=== PATIENT | female | born 1980 | race Two or more races ===

== ENCOUNTER → 2021-05-06 06:17 | Outpatient (CLI) | payer OTHER ==
[~2021-05-06 06:17] MED LIST: AVONEX ADM30 MCG/KIT IM; BACTRIM DS TAB1 EACH PO; PROZAC20 MG PO; TECFIDERA240 MG
== END | disposition home or self-care (01) ==
LOC: LAB 06:17
PROVIDERS: ATTEND Obstetrics & Gynecology
DX: I10 Essential (primary) hypertension (principal); E03.8 Other specified hypothyroidism; Z12.11 Encounter for screening for malignant neoplasm of colon; N30.00 Acute cystitis without hematuria; E83.51 Hypocalcemia; N95.8 Other specified menopausal and perimenopausal disorders

== ENCOUNTER 2021-05-23 14:16 | Outpatient (CLI) | payer OTHER ==
[~2021-05-23 14:16] MED LIST changes: -BACTRIM DS TAB1 EACH PO
[2021-06-25] MEDS ORDERED: BACTRIM DS TAB1 EACH PO (16:08)
== END 2021-05-23 14:29 | disposition home or self-care (01) ==
LOC: MAMO-SONO 14:16
PROVIDERS: ATTEND Obstetrics & Gynecology
DX: N60.11 Diffuse cystic mastopathy of right breast (principal); N60.12 Diffuse cystic mastopathy of left breast; Z12.31 Encounter for screening mammogram for malignant neoplasm of breast

== ENCOUNTER → 2021-06-25 | Emergency (ER) | payer OTHER ==
[~2021-06-25] VITALS: Ht 162.6 cm; Wt 59.0 kg
[~2021-06-25] MED LIST changes: +BACTRIM DS TAB1 EACH PO
== END | disposition home or self-care (01) ==
LOC: ER 14:42
DX: N39.0 Urinary tract infection, site not specified (principal)

== ENCOUNTER → 2021-08-08 06:09 | Outpatient (CLI) | payer OTHER | END | disposition home or self-care (01) | LOC: LAB 06:09 | PROVIDERS: ATTEND Psychiatry & Neurology Neurology | DX: G35 Multiple sclerosis (principal); Z13.29 Encounter for screening for other suspected endocrine disorder; E55.9 Vitamin D deficiency, unspecified; N30.00 Acute cystitis without hematuria ==

== ENCOUNTER 2021-08-28 06:30 | Emergency (ER) | payer OTHER ==
[~2021-08-28] VITALS: Ht 162.6 cm; Wt 56.7 kg
[2021-08-28] MEDS ORDERED: PROZAC20 MG (06:52)
[2021-08-28] MEDS ORDERED: PEPCID AC20 MG PO (13:20)
[2021-08-28] MEDS ORDERED: PANTOPRAZOLE SO20 MG PO (13:20)
== END 2021-08-28 13:52 | disposition home or self-care (01) ==
LOC: ER 06:30
DX: R10.13 Epigastric pain (principal); R10.11 Right upper quadrant pain

== ENCOUNTER → 2021-09-13 06:08 | Outpatient (CLI) | payer OTHER ==
[~2021-09-13 06:08] MED LIST changes: +PANTOPRAZOLE SO20 MG PO; +PEPCID AC20 MG PO; +PROZAC20 MG
== END | disposition home or self-care (01) ==
LOC: LAB 06:08
PROVIDERS: ATTEND Psychiatry & Neurology Neurology
DX: G35 Multiple sclerosis (principal); Z11.4 Encounter for screening for human immunodeficiency virus [HIV]; Z11.3 Encounter for screening for infections with a predominantly sexual mode of transmission; N30.00 Acute cystitis without hematuria; Z20.828 Contact with and (suspected) exposure to other viral communicable diseases; Z11.59 Encounter for screening for other viral diseases; Z13.29 Encounter for screening for other suspected endocrine disorder

== ENCOUNTER 2021-09-30 08:00 | Outpatient (CLI) | payer OTHER | END 2021-09-30 08:30 | disposition home or self-care (01) | LOC: PPH VACUNA 08:00 | PROVIDERS: ATTEND Emergency Medicine Pediatric Emergency Medicine | DX: Z23 Encounter for immunization (principal) ==

== ENCOUNTER 2021-11-05 06:42 | Outpatient (CLI) | payer OTHER | END 2021-11-05 06:43 | disposition home or self-care (01) | LOC: LAB 06:42 | PROVIDERS: ATTEND Psychiatry & Neurology Neurology | DX: N30.00 Acute cystitis without hematuria (principal); Z13.29 Encounter for screening for other suspected endocrine disorder ==

== ENCOUNTER → 2021-11-26 | Outpatient (CLI) | payer OTHER | END | disposition home or self-care (01) | LOC: PPH VACUNA 08:00 | PROVIDERS: ATTEND Emergency Medicine Pediatric Emergency Medicine | DX: Z23 Encounter for immunization (principal) ==

== ENCOUNTER 2022-01-15 06:17 | Outpatient (CLI) | payer OTHER | END 2022-01-15 06:18 | disposition home or self-care (01) | LOC: LAB 06:17 | PROVIDERS: ATTEND Internal Medicine | DX: E05.90 Thyrotoxicosis, unspecified without thyrotoxic crisis or storm (principal); I10 Essential (primary) hypertension ==

== ENCOUNTER 2022-01-24 12:58 | Outpatient (CLI) | payer OTHER | END 2022-01-24 13:08 | disposition home or self-care (01) | LOC: SONOGRAMA 12:58 | PROVIDERS: ATTEND Internal Medicine | DX: E04.2 Nontoxic multinodular goiter (principal) ==

== ENCOUNTER 2022-02-24 06:13 | Outpatient (CLI) | payer OTHER | END 2022-02-24 06:14 | disposition home or self-care (01) | LOC: LAB 06:13 | PROVIDERS: ATTEND Internal Medicine | DX: E05.90 Thyrotoxicosis, unspecified without thyrotoxic crisis or storm (principal); E11.65 Type 2 diabetes mellitus with hyperglycemia; I10 Essential (primary) hypertension ==

== ENCOUNTER 2022-04-01 06:10 | Outpatient (CLI) | payer OTHER | END 2022-04-01 06:11 | disposition home or self-care (01) | LOC: LAB 06:10 | PROVIDERS: ATTEND Internal Medicine | DX: E05.90 Thyrotoxicosis, unspecified without thyrotoxic crisis or storm (principal); I10 Essential (primary) hypertension ==

== ENCOUNTER 2022-05-23 06:13 | Outpatient (CLI) | payer OTHER | END 2022-05-23 06:14 | disposition home or self-care (01) | LOC: LAB 06:13 | PROVIDERS: ATTEND Internal Medicine | DX: I10 Essential (primary) hypertension (principal); E05.90 Thyrotoxicosis, unspecified without thyrotoxic crisis or storm ==

== ENCOUNTER 2022-06-10 06:48 | Outpatient (CLI) | payer OTHER | END 2022-06-10 06:57 | disposition home or self-care (01) | LOC: LAB 06:48 | PROVIDERS: ATTEND Internal Medicine | DX: E11.65 Type 2 diabetes mellitus with hyperglycemia (principal) ==

== ENCOUNTER → 2022-06-11 06:15 | Outpatient (CLI) | payer OTHER | END | disposition home or self-care (01) | LOC: LAB 06:15 | PROVIDERS: ATTEND Psychiatry & Neurology Neurology | DX: G35 Multiple sclerosis (principal); N30.00 Acute cystitis without hematuria ==

== ENCOUNTER 2022-06-30 06:36 | Outpatient (CLI) | payer OTHER | END 2022-06-30 06:37 | disposition home or self-care (01) | LOC: LAB 06:36 | PROVIDERS: ATTEND Psychiatry & Neurology Neurology | DX: G35 Multiple sclerosis (principal); E55.9 Vitamin D deficiency, unspecified ==

== ENCOUNTER 2022-08-01 06:46 | Outpatient (CLI) | payer OTHER | END 2022-08-01 06:47 | disposition home or self-care (01) | LOC: LAB 06:46 | PROVIDERS: ATTEND Internal Medicine | DX: E11.65 Type 2 diabetes mellitus with hyperglycemia (principal); E05.90 Thyrotoxicosis, unspecified without thyrotoxic crisis or storm; E03.9 Hypothyroidism, unspecified ==

== ENCOUNTER 2022-08-21 14:16 | Outpatient (CLI) | payer OTHER | END 2022-08-21 14:19 | disposition home or self-care (01) | LOC: SONOGRAMA 14:16 | PROVIDERS: ATTEND Internal Medicine | DX: E04.2 Nontoxic multinodular goiter (principal) ==

== ENCOUNTER → 2022-08-25 06:12 | Outpatient (CLI) | payer OTHER | END | disposition home or self-care (01) | LOC: LAB 06:12 | PROVIDERS: ATTEND Internal Medicine | DX: E05.90 Thyrotoxicosis, unspecified without thyrotoxic crisis or storm (principal); I10 Essential (primary) hypertension ==

== ENCOUNTER 2022-10-24 06:42 | Outpatient (CLI) | payer OTHER | END 2022-10-24 06:45 | disposition home or self-care (01) | LOC: LAB 06:42 | PROVIDERS: ATTEND Internal Medicine | DX: E78.5 Hyperlipidemia, unspecified (principal); I10 Essential (primary) hypertension; E55.9 Vitamin D deficiency, unspecified; E03.8 Other specified hypothyroidism ==

== ENCOUNTER 2022-10-29 12:53 | Outpatient (CLI) | payer OTHER | END 2022-10-29 12:56 | disposition home or self-care (01) | LOC: TOM 12:53 | DX: H57.9 Unspecified disorder of eye and adnexa (principal) ==

== ENCOUNTER 2022-11-27 09:41 | Outpatient (CLI) | payer OTHER | END 2022-11-27 09:46 | disposition home or self-care (01) | LOC: LAB 09:41 | PROVIDERS: ATTEND Internal Medicine | DX: E11.65 Type 2 diabetes mellitus with hyperglycemia (principal); E03.9 Hypothyroidism, unspecified; I10 Essential (primary) hypertension; E05.90 Thyrotoxicosis, unspecified without thyrotoxic crisis or storm ==

== ENCOUNTER → 2022-12-31 08:57 | Outpatient (CLI) | payer OTHER | END | disposition home or self-care (01) | LOC: LAB 08:57 | PROVIDERS: ATTEND Internal Medicine | DX: E03.9 Hypothyroidism, unspecified (principal); E05.90 Thyrotoxicosis, unspecified without thyrotoxic crisis or storm ==

== ENCOUNTER 2023-02-17 13:58 | Outpatient (CLI) | payer OTHER | END 2023-02-17 14:06 | disposition home or self-care (01) | LOC: SONOGRAMA 13:58 | PROVIDERS: ATTEND Internal Medicine | DX: E04.2 Nontoxic multinodular goiter (principal) ==

== ENCOUNTER → 2023-02-18 07:56 | Outpatient (CLI) | payer OTHER | END | disposition home or self-care (01) | LOC: LAB 07:56 | PROVIDERS: ATTEND Internal Medicine | DX: E11.65 Type 2 diabetes mellitus with hyperglycemia (principal); E05.91 Thyrotoxicosis, unspecified with thyrotoxic crisis or storm; I10 Essential (primary) hypertension ==

== ENCOUNTER 2023-05-13 07:24 | Outpatient (CLI) | payer OTHER | END 2023-05-13 07:26 | disposition home or self-care (01) | LOC: LAB 07:24 | PROVIDERS: ATTEND Internal Medicine | DX: I10 Essential (primary) hypertension (principal); E05.90 Thyrotoxicosis, unspecified without thyrotoxic crisis or storm; E11.65 Type 2 diabetes mellitus with hyperglycemia ==

== ENCOUNTER 2023-06-17 14:36 | Outpatient (CLI) | payer OTHER | END 2023-06-17 14:46 | disposition home or self-care (01) | LOC: MAMO-SONO 14:36 | PROVIDERS: ATTEND Obstetrics & Gynecology | DX: Z12.31 Encounter for screening mammogram for malignant neoplasm of breast (principal); N60.11 Diffuse cystic mastopathy of right breast; N60.12 Diffuse cystic mastopathy of left breast ==

== ENCOUNTER 2023-06-23 13:16 | Outpatient (CLI) | payer OTHER | END 2023-06-23 13:34 | disposition home or self-care (01) | LOC: NUCLEAR 13:16 | PROVIDERS: ATTEND Obstetrics & Gynecology | DX: M81.0 Age-related osteoporosis without current pathological fracture (principal) ==

== ENCOUNTER 2023-08-03 16:07 | Outpatient (CLI) | payer OTHER | END 2023-08-03 16:11 | disposition home or self-care (01) | LOC: RAD 16:07 | DX: H50.00 Unspecified esotropia (principal) ==

== ENCOUNTER → 2023-08-04 07:50 | Outpatient (CLI) | payer OTHER | END | disposition home or self-care (01) | LOC: LAB 07:50 | DX: D64.9 Anemia, unspecified (principal); E78.00 Pure hypercholesterolemia, unspecified; E05.00 Thyrotoxicosis with diffuse goiter without thyrotoxic crisis or storm; Z20.822 Contact with and (suspected) exposure to COVID-19 ==

== ENCOUNTER → 2023-09-04 09:01 | Outpatient (CLI) | payer OTHER ==
[2023-09-04 09:32] LABS: URINE APPEARANCE Clear; URINE BILIRRUBIN Negative (NEGATIVE); URINE BLOOD Negative; URINE COLOR Yellow; URINE GLUCOSE Negative (NEGATIVE); URINE LEUKOCYTE Trace; URINE NITRATE Negative; URINE PROTEIN Negative (NEGATIVE); URINE UROBILINOGEN 0.2 E.U./dl
[2023-09-04 09:33] LABS: URINE BACTERIA 22.6 uL (0.0-1933); URINE EPITHELIAL CELLS 10.9 uL (0.0-38.8); URINE RBC 11.4 uL (0.0-20.8); URINE WBC 6.6 uL (0.0-23.2)
[2023-09-04 09:40] LABS: HEMATOCRIT 40.4 % (36.0-45.00); HEMOGLOBIN 14.2 g/dL (12.0-15.00); MEAN CELL VOLUME 91.8 fL (80.00-100.00); MEAN CORPUSCULAR HEMOGLOBIN 32.2 pg (27.00-32.0); PLATELET COUNT 227 K/uL (150-450); RED CELL DISTRIBUTION WIDTH 14.5 % (11.5-14.5)
[2023-09-04 10:51] LABS: ALBUMIN 3.6 gm/dL (3.4-5.0); BILIRUBIN TOTAL 1.91 mg/dL (0.3-1.2); CALCIUM 8.7 mg/dL (8.5-10.1); CHOL HDL RATIO 2.4 (0-5.0); CREATININE SERUM 0.69 mg/dL (0.55-1.02); GLOBULINA 3.2 G/DL (2.4-3.5); POTASSIUM 3.8 mEq/L (3.5-5.1); T4 TOTAL 7.06 UG/DL (4.8-13.9); TOTAL PROTEIN 6.8 gm/dL (6.4-8.2); TSH 2.88 uIU/mL (0.358-3.74)
== END | disposition home or self-care (01) ==
LOC: LAB 09:01
DX: E78.5 Hyperlipidemia, unspecified (principal); N39.0 Urinary tract infection, site not specified; E11.9 Type 2 diabetes mellitus without complications; D64.9 Anemia, unspecified; R19.5 Other fecal abnormalities; M06.9 Rheumatoid arthritis, unspecified

== ENCOUNTER 2023-12-03 08:04 | Outpatient (CLI) | payer OTHER ==
[2023-12-03 08:55] LABS: HEMOGLOBIN 14.5 g/dL (12.0-15.00); MEAN CELL VOLUME 92.3 fL (80.00-100.00); MEAN CORPUSCULAR HEMOGLOBIN 31.2 pg (27.00-32.0); MEAN CORPUSCULAR HGB CONC 33.8 g/dl (32.0-36.0); PLATELET COUNT 240 K/uL (150-450); RED BLOOD COUNT 4.66 M/uL (4.00-6.00); RED CELL DISTRIBUTION WIDTH 12.8 % (11.5-14.5)
[2023-12-03 09:30] LABS: ALBUMIN 3.8 gm/dL (3.4-5.0); BILIRUBIN TOTAL 1.66 mg/dL (0.3-1.2); CALCIUM 9.5 mg/dL (8.5-10.1); CREATININE SERUM 0.72 mg/dL (0.55-1.02); GFR 87.59; GLOBULINA 3.2 G/DL (2.4-3.5); POTASSIUM 4.27 mEq/L (3.5-5.1)
== END 2023-12-03 08:05 | disposition home or self-care (01) ==
LOC: LAB 08:04
DX: G35 Multiple sclerosis (principal)

== ENCOUNTER 2023-12-28 07:58 | Outpatient (CLI) | payer OTHER ==
[2023-12-28 09:28] LABS: HEMATOCRIT 43.5 % (36.0-45.00); HEMOGLOBIN 14.8 g/dL (12.0-15.00); MEAN CELL VOLUME 92.2 fL (80.00-100.00); MEAN CORPUSCULAR HEMOGLOBIN 31.3 pg (27.00-32.0); PLATELET COUNT 260 K/uL (150-450); RED BLOOD COUNT 4.72 M/uL (4.00-6.00); RED CELL DISTRIBUTION WIDTH 12.9 % (11.5-14.5)
[2023-12-28 09:58] LABS: ALBUMIN 3.6 gm/dL (3.4-5.0); BILIRUBIN TOTAL 1.09 mg/dL (0.3-1.2); CALCIUM 9.1 mg/dL (8.5-10.1); CREATININE SERUM 0.67 mg/dL (0.55-1.02); GFR 95.18; GLOBULINA 3.2 G/DL (2.4-3.5); POTASSIUM 4.19 mEq/L (3.5-5.1); T4 FREE 0.98 NG/ML (0.76-1.46); TOTAL PROTEIN 6.8 gm/dL (6.4-8.2); TSH 4.41 uIU/mL (0.358-3.74)
== END 2023-12-28 08:02 | disposition home or self-care (01) ==
LOC: LAB 07:58
PROVIDERS: ATTEND Internal Medicine
DX: E11.65 Type 2 diabetes mellitus with hyperglycemia (principal); E03.8 Other specified hypothyroidism; E78.5 Hyperlipidemia, unspecified; I10 Essential (primary) hypertension

== ENCOUNTER 2024-05-23 07:19 | Outpatient (CLI) | payer OTHER ==
[2024-05-23 09:04] LABS: ALBUMIN 3.6 gm/dL (3.4-5.0); BILIRUBIN TOTAL 1.12 mg/dL (0.3-1.2); CALCIUM 8.8 mg/dL (8.5-10.1); CREATININE SERUM 0.64 mg/dL (0.55-1.02); GFR 99.9; POTASSIUM 4.02 mEq/L (3.5-5.1); T4 FREE 1.12 NG/ML (0.76-1.46); TOTAL PROTEIN 6.6 gm/dL (6.4-8.2); TSH 1.99 uIU/mL (0.358-3.74)
== END 2024-05-23 07:25 | disposition home or self-care (01) ==
LOC: LAB 07:19
PROVIDERS: ATTEND Surgery
DX: E05.00 Thyrotoxicosis with diffuse goiter without thyrotoxic crisis or storm (principal)

== ENCOUNTER 2024-05-25 14:30 | Outpatient (CLI) | payer OTHER | END 2024-05-25 14:36 | disposition home or self-care (01) | LOC: SONOGRAMA 14:30 | PROVIDERS: ATTEND Surgery | DX: E05.00 Thyrotoxicosis with diffuse goiter without thyrotoxic crisis or storm (principal) ==

== ENCOUNTER 2024-08-12 07:39 | Outpatient (CLI) | payer OTHER ==
[2024-08-12 08:57] LABS: T4 FREE 1.06 NG/ML (0.76-1.46); TSH 0.984 uIU/mL (0.358-3.74)
== END 2024-08-12 07:43 | disposition home or self-care (01) ==
LOC: LAB 07:39
PROVIDERS: ATTEND Surgery
DX: E05.00 Thyrotoxicosis with diffuse goiter without thyrotoxic crisis or storm (principal)

== ENCOUNTER 2024-10-26 07:51 | Outpatient (CLI) | payer OTHER ==
[2024-10-26 08:35] LABS: HEMATOCRIT 41.8 % (36.0-45.00); HEMOGLOBIN 14.4 g/dL (12.0-15.00); MEAN CELL VOLUME 88.5 fL (80.00-100.00); MEAN CORPUSCULAR HEMOGLOBIN 30.5 pg (27.00-32.0); MEAN CORPUSCULAR HGB CONC 34.4 g/dl (32.0-36.0); PLATELET COUNT 247 K/uL (150-450); RED BLOOD COUNT 4.72 M/uL (4.00-6.00); RED CELL DISTRIBUTION WIDTH 13.6 % (11.5-14.5)
[2024-10-26 09:58] LABS: ALBUMIN 3.9 gm/dL (3.4-5.0); BILIRUBIN TOTAL 1.3 mg/dL (0.3-1.2); CALCIUM 9.3 mg/dL (8.5-10.1); CREATININE SERUM 0.7 mg/dL (0.55-1.02); GFR 90.08; GLOBULINA 3.1 G/DL (2.4-3.5); POTASSIUM 4.42 mEq/L (3.5-5.1); T4 FREE 1.09 NG/ML (0.76-1.46); TSH 0.94 uIU/mL (0.358-3.74)
== END 2024-10-26 07:56 | disposition home or self-care (01) ==
LOC: LAB 07:51
PROVIDERS: ATTEND Internal Medicine
DX: E05.90 Thyrotoxicosis, unspecified without thyrotoxic crisis or storm (principal)

== ENCOUNTER 2024-11-28 08:10 | Outpatient (CLI) | payer OTHER ==
[2024-11-28 09:00] LABS: HEMATOCRIT 40.1 % (36.0-45.00); HEMOGLOBIN 13.3 g/dL (12.0-15.00); MEAN CELL VOLUME 89.3 fL (80.00-100.00); MEAN CORPUSCULAR HEMOGLOBIN 29.6 pg (27.00-32.0); MEAN CORPUSCULAR HGB CONC 33.2 g/dl (32.0-36.0); PLATELET COUNT 235 K/uL (150-450); RED BLOOD COUNT 4.49 M/uL (4.00-6.00); RED CELL DISTRIBUTION WIDTH 13.7 % (11.5-14.5)
[2024-11-28 09:23] LABS: PH,URINE 6.5 (5.0-8.0); URINE APPEARANCE Clear; URINE BILIRRUBIN Negative (NEGATIVE); URINE BLOOD Negative; URINE COLOR Yellow; URINE GLUCOSE Negative (NEGATIVE); URINE KETONE Negative (NEGATIVE); URINE LEUKOCYTE Negative; URINE NITRATE Negative; URINE PROTEIN Negative (NEGATIVE); URINE UROBILINOGEN 0.2 E.U./dl
[2024-11-28 09:28] LABS: URINE BACTERIA 47.7 uL (0.0-1933); URINE EPITHELIAL CELLS 3.3 uL (0.0-38.8); URINE RBC 6.9 uL (0.0-20.8)
[2024-11-28 09:30] LABS: URINE WBC 1.1 uL (0.0-23.2)
[2024-11-28 09:44] LABS: ALBUMIN 3.6 gm/dL (3.4-5.0); BILIRUBIN TOTAL 1.2 mg/dL (0.3-1.2); CREATININE SERUM 0.54 mg/dL (0.55-1.02); GFR 121.54; GLOBULINA 2.9 G/DL (2.4-3.5); POTASSIUM 3.95 mEq/L (3.5-5.1); TOTAL PROTEIN 6.5 gm/dL (6.4-8.2); TSH 1.04 uIU/mL (0.358-3.74)
[2024-11-28 12:30] LABS: VITAMIN D3 25 HYDROXY 63.79 ng/ml (30-120)
== END 2024-11-28 08:11 | disposition home or self-care (01) ==
LOC: LAB 08:10
PROVIDERS: ATTEND Psychiatry & Neurology Neurology
DX: G35 Multiple sclerosis (principal); N39.0 Urinary tract infection, site not specified; R76.8 Other specified abnormal immunological findings in serum; B18.2 Chronic viral hepatitis C; B18.0 Chronic viral hepatitis B with delta-agent; Z20.820 Contact with and (suspected) exposure to varicella; Z20.6 Contact with and (suspected) exposure to human immunodeficiency virus [HIV]; Z11.1 Encounter for screening for respiratory tuberculosis; E53.8 Deficiency of other specified B group vitamins; E56.9 Vitamin deficiency, unspecified; R94.6 Abnormal results of thyroid function studies; R19.5 Other fecal abnormalities; E55.9 Vitamin D deficiency, unspecified; C18.9 Malignant neoplasm of colon, unspecified

== ENCOUNTER → 2024-12-20 10:49 | Outpatient (CLI) | payer OTHER ==
[2024-12-22 08:04] LABS: HEPATITIS A ANTIBODY IGG Negative (Negative); HEPATITIS B SURFACE ANTIBODY Reactive (.); HEPATITIS C VIRUS ANTIBODY Non Reactive (Non Reactive)
== END | disposition home or self-care (01) ==
LOC: LAB 10:49
DX: A64 Unspecified sexually transmitted disease (principal); B19.11 Unspecified viral hepatitis B with hepatic coma

== ENCOUNTER → 2025-01-20 08:14 | Outpatient (CLI) | payer OTHER ==
[2025-01-20 08:29] LABS: URINE APPEARANCE Clear; URINE BILIRRUBIN Negative (NEGATIVE); URINE BLOOD Negative; URINE COLOR Yellow; URINE GLUCOSE Negative (NEGATIVE); URINE KETONE Negative (NEGATIVE); URINE LEUKOCYTE Negative; URINE NITRATE Negative; URINE PROTEIN Negative (NEGATIVE); URINE UROBILINOGEN 0.2 E.U./dl
[2025-01-20 08:30] LABS: URINE BACTERIA 28.1 uL (0.0-1933); URINE EPITHELIAL CELLS 2.5 uL (0.0-38.8); URINE RBC 2.5 uL (0.0-20.8)
[2025-01-20 08:32] LABS: URINE WBC 0.9 uL (0.0-23.2)
[2025-01-20 08:45] LABS: HEMOGLOBIN 13.5 g/dL (12.0-15.00); MEAN CELL VOLUME 87.4 fL (80.00-100.00); MEAN CORPUSCULAR HEMOGLOBIN 30.2 pg (27.00-32.0); MEAN CORPUSCULAR HGB CONC 34.5 g/dl (32.0-36.0); PLATELET COUNT 246 K/uL (150-450); RED BLOOD COUNT 4.46 M/uL (4.00-6.00); RED CELL DISTRIBUTION WIDTH 13.7 % (11.5-14.5)
[2025-01-20 08:56] LABS: INR < 0.93; PARTIAL THROMBOPLASTIN TIME 29.2 SECONDS (22.0-34.0); PROTHROMBIN TIME 10.2 SECONDS (9.0-11.5)
[2025-01-20 09:17] LABS: CALCIUM 8.5 mg/dL (8.5-10.1); CREATININE SERUM 0.54 mg/dL (0.55-1.02); GFR 121.54; POTASSIUM 4.05 mEq/L (3.5-5.1)
[2025-01-23 09:17] LABS: FOLLICLE STIMULATING HORMONE 6.2 mIU/mL (.); LEUTEINIZING HORMONE 8.4 mIU/mL (.); PROLACTIN 16.2 ng/mL (4.8-33.4)
== END | disposition home or self-care (01) ==
LOC: LAB 08:14
PROVIDERS: ATTEND Obstetrics & Gynecology
DX: N95.8 Other specified menopausal and perimenopausal disorders (principal); E78.49 Other hyperlipidemia; E22.1 Hyperprolactinemia; E11.39 Type 2 diabetes mellitus with other diabetic ophthalmic complication; I15.8 Other secondary hypertension; D68.32 Hemorrhagic disorder due to extrinsic circulating anticoagulants; D69.9 Hemorrhagic condition, unspecified

== ENCOUNTER 2025-01-25 16:11 | Outpatient (CLI) | payer OTHER | END 2025-01-25 16:16 | disposition home or self-care (01) | LOC: RAD 16:11 | DX: I15.8 Other secondary hypertension (principal); I10 Essential (primary) hypertension ==

== ENCOUNTER 2025-03-16 13:49 | Outpatient (CLI) | payer OTHER | END 2025-03-16 13:57 | disposition home or self-care (01) | LOC: MAMO-SONO 13:49 | PROVIDERS: ATTEND Obstetrics & Gynecology | DX: N60.11 Diffuse cystic mastopathy of right breast (principal); N60.12 Diffuse cystic mastopathy of left breast ==

== ENCOUNTER 2025-04-18 08:00 | Outpatient (CLI) | payer OTHER ==
[2025-04-18 08:39] LABS: BASO % 1.2 % (0.1-1.2); EOS # 0.11 (0.04-0.54); EOS % 2.6 % (0.7-7.0); HEMATOCRIT 39.3 % (34.1-44.9); HEMOGLOBIN 13.3 g/dL (11.2-15.7); LYMPH # 0.77 (1.18-3.74); LYMPH % 17.9 % (19.3-53.1); MEAN CORPUSCULAR HEMOGLOBIN 29.1 pg (25.6-32.2); MONO # 0.43 (0.24-0.82); NEUT # 2.92 (1.56-6.13); NEUT % 68.1 % (34.0-71.1); PLATELET COUNT 281 K/uL (163-369); RED BLOOD COUNT 4.57 M/uL (3.93-5.22)
[2025-04-18 08:47] LABS: PH,URINE 7.5 (5.0-8.0); URINE APPEARANCE Cloudy; URINE BILIRRUBIN Negative (NEGATIVE); URINE BLOOD Negative; URINE COLOR Yellow; URINE GLUCOSE Negative (NEGATIVE); URINE KETONE Negative (NEGATIVE); URINE LEUKOCYTE Large; URINE NITRATE Negative; URINE PROTEIN 30 (NEGATIVE)
[2025-04-18 08:54] LABS: URINE CAST 7.51 uL (0.0-1.40); URINE EPITHELIAL CELLS 73.4 uL (0.0-38.8); URINE RBC 25.4 uL (0.0-20.8); URINE WBC 308.4 uL (0.0-23.2)
[2025-04-18 09:43] LABS: URINE BACTERIA > 9821.5 uL (0.0-1933)
[2025-04-18 09:45] LABS: URINE CRYSTALS FEW /HPF
[2025-04-18 10:31] LABS: VITAMIN D3 25 HYDROXY 77.64 ng/ml (30-120)
[2025-04-18 13:24] LABS: ALBUMIN 3.6 gm/dL (3.4-5.0); BILIRUBIN TOTAL 1.68 mg/dL (0.3-1.2); CALCIUM 8.8 mg/dL (8.5-10.1); CREATININE SERUM 0.6 mg/dL (0.55-1.02); GFR 107.62; GLOBULINA 3.2 G/DL (2.4-3.5); POTASSIUM 4.12 mEq/L (3.5-5.1); TOTAL PROTEIN 6.8 gm/dL (6.4-8.2); TSH 0.953 uIU/mL (0.358-3.74)
== END 2025-04-18 08:05 | disposition home or self-care (01) ==
LOC: LAB 08:00
PROVIDERS: ATTEND Psychiatry & Neurology Neurology
DX: G35 Multiple sclerosis (principal); N39.0 Urinary tract infection, site not specified; R76.8 Other specified abnormal immunological findings in serum; B18.2 Chronic viral hepatitis C; B18.0 Chronic viral hepatitis B with delta-agent; Z20.820 Contact with and (suspected) exposure to varicella; Z20.6 Contact with and (suspected) exposure to human immunodeficiency virus [HIV]; Z11.1 Encounter for screening for respiratory tuberculosis; E53.8 Deficiency of other specified B group vitamins; E56.9 Vitamin deficiency, unspecified; R94.6 Abnormal results of thyroid function studies; R19.5 Other fecal abnormalities; E55.9 Vitamin D deficiency, unspecified; C18.9 Malignant neoplasm of colon, unspecified

== ENCOUNTER 2025-05-12 08:13 | Outpatient (CLI) | payer OTHER ==
[2025-05-12 08:34] LABS: URINE APPEARANCE Clear; URINE BILIRRUBIN Negative (NEGATIVE); URINE BLOOD Negative; URINE COLOR Yellow; URINE GLUCOSE Negative (NEGATIVE); URINE KETONE Negative (NEGATIVE); URINE LEUKOCYTE Trace; URINE NITRATE Negative; URINE PROTEIN Negative (NEGATIVE); URINE UROBILINOGEN 0.2 E.U./dl
[2025-05-12 08:38] LABS: URINE BACTERIA 550.6 uL (0.0-1933); URINE EPITHELIAL CELLS 4.2 uL (0.0-38.8); URINE WBC 23.7 uL (0.0-23.2)
[2025-05-12 09:13] LABS: URINE CAST 0.14 uL (0.0-1.40); URINE RBC 1.4 uL (0.0-20.8)
== END 2025-05-12 08:17 | disposition home or self-care (01) ==
LOC: LAB 08:13
DX: G35 Multiple sclerosis (principal); N39.0 Urinary tract infection, site not specified; R76.8 Other specified abnormal immunological findings in serum; B18.2 Chronic viral hepatitis C; Z20.820 Contact with and (suspected) exposure to varicella; Z20.6 Contact with and (suspected) exposure to human immunodeficiency virus [HIV]; Z11.1 Encounter for screening for respiratory tuberculosis; E53.8 Deficiency of other specified B group vitamins; E56.9 Vitamin deficiency, unspecified; R94.6 Abnormal results of thyroid function studies; R19.5 Other fecal abnormalities; E55.9 Vitamin D deficiency, unspecified; C18.9 Malignant neoplasm of colon, unspecified

== ENCOUNTER 2025-09-25 08:41 | Outpatient (CLI) | payer OTHER | END 2025-09-25 08:48 | disposition home or self-care (01) | LOC: MRI 08:41 | DX: G35.B0 Primary progressive multiple sclerosis, unspecified (principal) | CPT/HCPCS: 70553 ==

== ENCOUNTER → 2025-10-17 08:15 | Outpatient (CLI) | payer OTHER ==
[2025-10-17 08:40] LABS: BASO % 1.1 % (0.1-1.2); EOS # 0.07 (0.04-0.54); EOS % 1.9 % (0.7-7.0); LYMPH # 0.67 (1.18-3.74); LYMPH % 18.5 % (19.3-53.1); MEAN PLATELET VOLUME 10.50 fl (9.4-12.4); MONO # 0.38 (0.24-0.82); MONO % 10.5 % (4.7-12.5); NEUT # 2.45 (1.56-6.13); NEUT % 67.7 % (34.0-71.1); RED CELL DISTRIBUTION WIDTH 12.7 % (11.6-14.4)
[2025-10-17 09:18] LABS: ALT/SGPT 23.0 U/L (12-78); AST/SGOT 16.0 U/L (15-37); BILIRUBIN TOTAL 1.28 mg/dL (0.3-1.2); BUN CREA RATIO 20.0 (7.0-25.0); CREATININE SERUM 0.56 mg/dL (0.55-1.02); GFR 116.04; GLOBULINA 3.2 G/DL (2.4-3.5); GLUCOSE FASTING 97.0 mg/dL (65-100); OSMOLALITY SERUM 284.0 MOSM/KG (275-295)
[2025-10-17 10:26] LABS: VITAMIN D3 25 HYDROXY 73.97 ng/ml (30-120)
== END | disposition home or self-care (01) ==
LOC: LAB 08:15
DX: G35.A Relapsing-remitting multiple sclerosis (principal); E55.9 Vitamin D deficiency, unspecified; E53.8 Deficiency of other specified B group vitamins